=== PATIENT | male | born 1995 | race Caucasian/White ===

== ENCOUNTER 2016-12-24 09:11 | Emergency (ER) | payer MEDICAID ==
[~2016-12-24] VITALS: Ht 188 cm; Wt 86.2 kg
[2016-12-24 09:11] VITALS: BP_SYST 121
[2016-12-24 09:30] VITALS: BP_SYST 121
== END 2016-12-24 09:30 | disposition home or self-care (01) ==
LOC: SED 09:11
DX: L70.9 Acne, unspecified (principal)
CPT/HCPCS: 99283